=== PATIENT | female | born 1995 | race Caucasian/White ===

== ENCOUNTER 2020-05-30 06:51 | Outpatient (NON) | payer OTHER, SELFPAY ==
[2020-06-02 13:48] LABS: SARS-CoV-2 RNA PCR Negative
== END 2020-05-30 06:52 ==
LOC: ANHCOVIDDT 06:59
PROVIDERS: Visit Provider Physician Assistant
DX: Z20.828 Contact with and (suspected) exposure to other viral communicable diseases (principal)
CPT/HCPCS: 87635; C9803; U0003

== ENCOUNTER 2021-03-16 19:02 | Observation (INO) | payer BC, SELFPAY ==
--- NOTE | ~2021-03-16 | US_ITS ---
EXAMINATION: US pelvic complete DATE: 03/16/2021 22:39 INDICATION: Suprapubic pain. TECHNIQUE: Multiple transabdominal and transvaginal sonographic images of the pelvis were obtained. COMPARISON: CT abdomen and pelvis 03/30/2015 FINDINGS: TRANSABDOMINAL ULTRASOUND: The uterus measures 7.6 x 3.2 x 4.0 cm. There is no free fluid in the pelvis. TRANSVAGINAL ULTRASOUND: The endometrial complex measures 8 mm in thickness. The right ovary measures 3.1 x 1.9 x 1.7 cm. The left ovary measures 2.9 x 2.0 x 1.7 cm. There is normal vascular flow in the ovaries. IMPRESSION: 1. Normal pelvis. Reviewed, dictated and finalized at location A. IMPRESSION: 1. Normal pelvis.
[2021-03-16 19:35] VITALS: BP 123/66; PULSE 113; RESP 18; TEMP 38; O2SAT 99
[2021-03-16] MEDS: ACETAMINOPHEN 500 MG TABLET 1000 MG PO (21:40)
[2021-03-16 21:45] LABS: Add Urine Microscopic? YES; Amorphous Sediment Urine Few; Appearance Urine Clear (Clear); Bacteria Urine Trace /hpf; Bilirubin Urine Negative (Negative); Blood Urine 1+ (Negative); Color Urine Yellow (Yellow); Glucose Urine UA Negative (Negative); Ketones Urine Negative (Negative); Leukocyte Esterase Ur 3+ LEU/UL (Negative); Mucus Urine Rare /lpf; Nitrate Urine Negative (Negative); Protein Urine Negative (Negative); Specific Grav Ur 1.014 (1.001-1.035); Squamous Epithelial Cell Urine Rare /hpf (Few); Urobilinogen Urine Negative mg/dL (<2.0); WBC Urine >75 /hpf
[2021-03-16 22:25] LABS: Basophils Absolute Auto 0.2 K/mm3 (0.0-0.1); Eosinophils Absolute Auto 0.3 K/mm3 (0-0.3); Eosinophils Percent Auto 1.6 % (0-4.4); Hematocrit 41.8 % (37.0-47.0); Hemoglobin 13.5 g/dL (12.0-15.0); Immature Granulocyte Percent A 0.5 % (0-0.5); Lymphocytes Absolute Auto 5.27 K/mm3 (0.9-3.2); Lymphocytes Percent Auto 25.8 % (18.3-44.2); Mean Corpuscular HGB Conc 32.3 g/dl (32-36); Mean Corpuscular Hemoglobin 30.4 pg (26-34); Mean Corpuscular Volume 94.1 fl (80-100); Mean Platelet Volume 8.8 fl (7.4-10.4); Monocytes Absolute Auto 3.6 K/mm3 (0.1-0.6); Monocytes Percent Auto 17.7 % (2.6-8.5); Neutrophils Absolute Auto 10.9 K/mm3 (1.3-6.7); Neutrophils Percent Auto 53.4 % (45.5-73.1); Platelet Count Result 393 k/mm3 (150-375); Red Blood Count 4.44 M/mm3 (4.2-5.4); Red Cell Distribution Width 14.1 % (11.5-14.5); White Blood Count 20.5 K/mm3 (4.5-10.0)
[2021-03-16 22:33] LABS: Atypical Lymphocytes Present; Platelet Estimate Increased (Adequate)
[2021-03-16 22:37] LABS: Anion Gap 8 mmol/L (8-16); Blood Urea Nitrogen 12 mg/dL (7-17); Calcium 8.8 mg/dL (8.4-10.2); Carbon Dioxide 25 mmol/L (22-30); Chloride 104 mmol/L (98-107); Estimated CRCL calculation 110 ml/min; Estimated Glomerular Filt Rate > 60; Glucose 91 mg/dL (65-110); Potassium 3.9 mmol/L (3.4-5.0); Sodium 137 mmol/L (137-145)
[2021-03-16] MEDS: MORPHINE SULFATE (*CRX) 4 MG/ML INJ IV PUSH (22:38)
--- NOTE | 2021-03-16 23:30 | ED.FEMALEGU ---
HPI - Female Genitourinary General Chief complaint: Urogenital-Female Stated complaint: vaginal issues Time Seen by Provider: 03/16/21 20:55 History of Present Illness HPI Narrative: Patient is a 25-year-old female who presents ER with vaginal discharge and rash to the vagina. Patient reports 1 week ago she had sexual intercourse with her boyfriend who has been out of town for last 2 months. 2 days later she started developing some abnormal discharge. She then developed blisters to the outer aspect of her vagina. She has had these blisters before and began taking some valacyclovir her last day with no relief. She has urinary frequency and burning urination. She is febrile as well. No chills. She reports modest lower abdominal pain without radiation. Cannot describe aggravating or alleviating factors. Patient reports yesterday she was seen at a [facility] clinic and prescribed azithromycin and swabbed negative for Covid after having sinus congestion. Related Data Allergies Allergy/AdvReac Type Severity Reaction Status Date / Time amoxicillin Allergy Unknown erythema Verified 12/16/20 14:49 multiforme cephalexin Allergy Unknown allergic Verified 12/16/20 14:49 clavulanic acid Allergy Unknown Swelling Verified 12/16/20 14:49 Review of Systems Review of Systems: All systems reviewed & are unremarkable except as noted in HPI and below Constitutional: Constitutional: Denies chills Comments: + Fevers ENT: Reports nasal congestion and Denies sore throat Respiratory: Respiratory: Reports cough and Denies dyspnea Gastrointestinal: Gastrointestinal: Reports abdominal pain, Denies diarrhea, Denies nausea and Denies vomiting Genitourinary: Genitourinary: Reports nocturia, Reports dysuria, Reports pelvic pain, Denies flank pain and Reports vaginal discharge PMFSH Past Medical History Medical History Infectious mononucleosis without complication Overweight (BMI 25.0-29.9) Vaginal pain Surgical History Surgical History H/O splenectomy fam hx hemolytic anemia Social History Social History Alcohol intake: current Exam Narrative: GENERAL: Well-appearing, well-nourished, and in no acute distress. HEAD: Normocephalic, atraumatic. EYES: PERRL and EOMI. CHEST: Clear to auscultation. No respiratory distress. HEART: Tachycardic and regular. Normal peripheral pulses. ABDOMEN: Soft, mild pelvic tenderness without guarding, nondistended. : External genitalia with ulcerations consistent with herpes outbreak. No vesicles noted. No weeping or pustules. Right side more involved than the left. Patient with significant discomfort on speculum exam no CMT. Difficult to visualize cervix due to large amount of yellow purulent discharge. EXTREMITIES: Normal range of motion. No edema. SKIN: Warm, dry, no rash. NEURO: Alert and oriented x3. PSYCH: Normal mood and affect. Course Course Emergency Course: Discussed case with Dr. Multani who is on-call for patients who do not have a staff auditor. Patient will be admitted to the hospital for parenteral therapy of PID. Patient aware of diagnosis and treatment plan. Vital Signs Vital signs: Vital Signs Temperature 100.4 F H 03/16/21 19:35 Pulse Rate 113 H 03/16/21 19:35 Respiratory Rate 18 03/16/21 19:35 Blood Pressure 123/66 03/16/21 19:35 Pulse Oximetry 99 03/16/21 19:35 Temperature 100.4 F H 03/16/21 19:35 Pulse Rate 113 H 03/16/21 19:35 Respiratory Rate 18 03/16/21 19:35 Blood Pressure 123/66 03/16/21 19:35 Pulse Oximetry 99 03/16/21 19:35 MDM - Female Genitourinary Lab Data Result diagrams: 03/16/21 22:17 03/16/21 22:17 Labs: Lab Results 03/16/21 03/16/21 03/16/21 Range/Units 21:27 22:17 22:17 WBC 20.5 H (4.5-10.0) K/mm3 RBC
[2021-03-17] VITALS (7 sets, daily range): BP systolic 101–120; BP diastolic 45–71; PULSE 64–97; RESP 15–169; TEMP 35.7–36.5; O2SAT 97–100; BMI 26.5
[2021-03-17] MEDS: SODIUM CHLORIDE 0.9% IV 1,000 ML 125 ML IV CONT ×3 (00:07→18:12)
[2021-03-17] MEDS: CLINDAMYCIN 900 MG/D5W 50 ML 900 MG/50 ML PIGGYBACK 50 MG IVPB ×4 (00:07→21:08)
[2021-03-17] MEDS: GENTAMICIN SULFATE INJ 305 MG in DEXTROSE 5% 100 ML 107 MG IVPB (00:50)
--- NOTE | 2021-03-17 00:53 | ADMGEN ---
This patient, Deepti Leyva, was admitted to 2 Medical Room 257-01. Patient/family oriented to hospital policies and general routines including ID bracelet, bed and alarms, visiting hours, pain management, procedures, bathroom and other care routines, personal items, smoking policy, room service/diet, and visiting hours. Information on how to activate the Rapid Response Team has been discussed. Patient/Family are encouraged to report perceived risks to care and to ask questions if they do not understand what they are told or what they should do.
[2021-03-17] MEDS: MORPHINE SULFATE (*CRX) 4 MG/ML INJ IV PUSH ×4 (01:20→21:03)
[2021-03-17 05:42] LABS: Basophils Absolute Auto 0.2 K/mm3 (0.0-0.1); Basophils Percent Auto 1.5 % (0.2-1.2); Eosinophils Absolute Auto 0.6 K/mm3 (0-0.3); Hematocrit 40.2 % (37.0-47.0); Hemoglobin 12.8 g/dL (12.0-15.0); Immature Granulocyte Absolute 0.05 K/mm3 (0.00-0.031); Immature Granulocyte Percent A 0.4 % (0-0.5); Lymphocytes Absolute Auto 3.94 K/mm3 (0.9-3.2); Lymphocytes Percent Auto 28.7 % (18.3-44.2); Mean Corpuscular HGB Conc 31.8 g/dl (32-36); Mean Corpuscular Hemoglobin 30.8 pg (26-34); Mean Corpuscular Volume 96.9 fl (80-100); Mean Platelet Volume 8.8 fl (7.4-10.4); Monocytes Absolute Auto 2.4 K/mm3 (0.1-0.6); Monocytes Percent Auto 17.8 % (2.6-8.5); Neutrophils Absolute Auto 6.6 K/mm3 (1.3-6.7); Neutrophils Percent Auto 47.6 % (45.5-73.1); Platelet Count Result 374 k/mm3 (150-375); Red Blood Count 4.15 M/mm3 (4.2-5.4); Red Cell Distribution Width 14.3 % (11.5-14.5); White Blood Count 13.7 K/mm3 (4.5-10.0)
[2021-03-17] MEDS: valACYclovir HCL 500 MG TABLET PO ×2 (08:37→21:08)
[2021-03-17] MEDS: HYDROcodone/acetaminophen (*CRX) 5-325 MG TABLET 1 TAB PO (12:28)
[2021-03-17 14:49] LABS: Gentamicin Random < 0.6 ug/mL (5.0-12.0)
--- NOTE | 2021-03-17 15:33 | PM.IMHP ---
H&P: HPI History of Present Illness Date/Time: 03/17/21 15:33 25 y/o nulligravida who presented to the ED with vaginal pain. Her sexual partner had been out of town for two months, then returned. She reports rough sex on 03/11, after which she noted bleeding and pain at the introitus. Exam by ED physician was very uncomfortable, with lots of purulent drainage from the cervix. Her WBC was 20K and she was febrile, so she was admitted for parenteral PID therapy. Also reports painful vulvar bumps / blisters. She has seen Dr. Julius Lane for this in the past and has had negative swabs and negative blood testing for HSV. She does not get fever blisters. She reports no abdominal pain, only vulvar pain. Urination is excruciating. Has required morphine here for pain control. Chief Complaint: Vaginal issues. Review of Systems Review of Systems: All systems reviewed & are unremarkable except as noted in HPI and below PMFSH Past Medical History Medical History Depression Infectious mononucleosis without complication Overweight (BMI 25.0-29.9) Vaginal pain Surgical History Surgical History H/O splenectomy fam hx hemolytic anemia Social History Social History Smoking status: Never smoker Alcohol intake: current Drinks per week: 1 Substance use: current Substance use type: marijuana Other substance usage details: 03/16/2021 Spiritual care concerns: No Meds Home Medications and Allergies Home Medications Medication Instructions Recorded Confirmed Type dextroamphetamine-amphetamine 10 mg PO BID 03/17/21 03/17/21 History duloxetine 60 mg PO DAILY 03/17/21 03/17/21 History Allergies Allergy/AdvReac Type Severity Reaction Status Date / Time amoxicillin Allergy Unknown erythema Verified 12/16/20 14:49 multiforme cephalexin Allergy Unknown allergic Verified 12/16/20 14:49 clavulanic acid Allergy Unknown Swelling Verified 12/16/20 14:49 Vital Signs Vital Signs - 24 hr 03/16/21 19:35 03/17/21 00:14 03/17/21 00:45 Temperature 38.0 C H 36.5 C Pulse Rate 113 H 97 90 Respiratory Rate 18 15 17 Blood Pressure 123/66 120/71 119/66 Pulse Oximetry 99 97 99 03/17/21 06:00 03/17/21 12:29 03/17/21 14:00 Temperature 36.1 C L 35.7 C L Pulse Rate 78 64 Respiratory Rate 17 16 Blood Pressure 106/52 L 110/60 101/45 L Pulse Oximetry 98 100 Exam Const: Orientation/consciousness: patient oriented x3 Other: Well-developed, well-nourished female in no acute distress. Neck: Thyroid: thyroid normal Lymphatic: no lymphadenopathy noted (in neck, axilla or inguinal nodes) Resp: Effort & Inspection: normal respiratory effort Auscultation: clear to auscultation bilaterally Cardio: Rate: regular rate Rhythm: regular rhythm Heart sounds: S1 normal heart sound present and S2 normal heart sound present GI: Other: ABD: Soft, nontender, nondistended. No guarding or rebound tenderness. No hepatosplenomegaly. : General: Yes no CVA tenderness Other: Limited exam performed in the hospital bed. EXT GEN: a few well-healed ulcerations / excoriations on the right labium minus. Also a shallow laceration at the vaginal introitus extending to the perineum seems to be the source of her pain. Ulcerations and laceration were swabbed for HSV. Speculum and bimanual exams were not undertaken due to her high degree of pain. Back/Spine/Pelvis: Back: no CVA tenderness Skin: General skin exam: normal color and no rashes or lesions noted Neuro: General: patient oriented x3 Extrem: Other: Extremities: nontender with no edema Psych: Mental Status: mental status grossly normal Affect: normal affect H&P: Results Labs Labs: Short CBC 03/16/21 03/17/21 Range/Units 22:17 05:30 WBC 20.5 H 13.7 H (4.5-10.0) K/mm3 Hgb 13.5 12.8
[2021-03-17] MEDS: LIDOCAINE HCL 2% JELLY 5 ML TUBE 1 APPLIC MUCOUS MEM (16:36)
[2021-03-18] MEDS: GENTAMICIN SULFATE INJ 305 MG in DEXTROSE 5% 100 ML 100 MG IVPB (00:20)
[2021-03-18] MEDS: SODIUM CHLORIDE 0.9% IV 1,000 ML 125 ML IV CONT (03:00)
[2021-03-18 05:24] VITALS: BP 98/46; PULSE 76; RESP 20; TEMP 36.1; O2SAT 99
[2021-03-18 05:25] VITALS: BP 104/46
[2021-03-18] MEDS: CLINDAMYCIN 900 MG/D5W 50 ML 900 MG/50 ML PIGGYBACK 50 MG IVPB (05:47)
[2021-03-18 06:07] LABS: Estimated CRCL calculation 125 ml/min; Estimated Glomerular Filt Rate > 60
[2021-03-18] MEDS: MORPHINE SULFATE (*CRX) 4 MG/ML INJ IV PUSH (09:04)
[2021-03-18] MEDS: valACYclovir HCL 500 MG TABLET PO (09:04)
[2021-03-18 09:12] LABS: Hematocrit 40.9 % (37.0-47.0); Hemoglobin 12.9 g/dL (12.0-15.0); Mean Corpuscular HGB Conc 31.5 g/dl (32-36); Mean Corpuscular Hemoglobin 30.8 pg (26-34); Mean Corpuscular Volume 97.6 fl (80-100); Mean Platelet Volume 9.3 fl (7.4-10.4); Platelet Count Result 438 k/mm3 (150-375); Red Blood Count 4.19 M/mm3 (4.2-5.4); Red Cell Distribution Width 14.3 % (11.5-14.5); White Blood Count 8.3 K/mm3 (4.5-10.0)
--- NOTE | 2021-03-18 12:42 | PM.GYNPNOP ---
BREWMASTER - A/P Assessment and plan (1) Laceration of perineum in female: Code(s): S31.41XA - Laceration without foreign body of vagina and vulva, initial encounter Status: Acute Assessment and Plan: A/P: 1) PID, clinically improving. Home to f/u 14 days total antibiotic course. Home with Flagyl and doxycycline. F/u with me in 2 weeks in the office. Still waiting for results regarding CT/GC and HSV. 2) Perineal laceration. Advised sitzbaths tid, continue xylocaine 2% jelly. F/u 2 weeks in office. (2) Acute PID (pelvic inflammatory disease): Code(s): N73.0 - Acute parametritis and pelvic cellulitis Status: Acute Time Spent With Patient Time with patient: less than 15 minutes BREWMASTER- PN:Subj Post-Op Subjective Date/time seen: 03/18/21 12:42 Feels much better today. No fever. Xylocaine jelly is great for the perineal pain. Tolerating diet. Interval history: Pain OK. Tolerating diet. Voiding. Would like to go home. Review of Systems Review of Systems: All systems reviewed & are unremarkable except as noted in HPI and below Exam Narrative: AVSS I/O OK ABD soft, nontender. EXT nontender Pelvic: Deferred. BREWMASTER - PN: Obj Data Vital Signs Vital Signs: Vital Signs - 24 hr 03/17/21 14:00 03/17/21 15:40 03/17/21 21:16 Temperature 35.7 C L 36.4 C Pulse Rate 64 72 71 Respiratory Rate 16 169 H Blood Pressure 101/45 L 111/66 108/60 Pulse Oximetry 100 98 03/18/21 05:24 03/18/21 05:25 Temperature 36.1 C L Pulse Rate 76 Respiratory Rate 20 Blood Pressure 98/46 L 104/46 L Pulse Oximetry 99 Intake/Output Intake/Output: Intake & Output 03/15/21 03/16/21 03/17/21 03/18/21 23:59 23:59 23:59 23:59 Intake Total 3475 1545 Output Total 1000 900 Balance 6759 535 Meds/Results Medications: Active Medications Generic Name Dose Route Start Last Admin Trade Name Freq PRN Reason Stop Dose Admin Acetaminophen 650 mg 03/16/21 23:43 Acetaminophen 325 Mg Tablet PO Q4H PRN Mild Pain (1-3) or Fever Hydrocodone Bitart/Acetaminophen 1 tab 03/16/21 23:43 03/17/21 12:28 Hydrocodone/Acetaminophen (*Crx) 5-325 Mg Tablet PO 1 tab Q4H PRN Administration Pain Rated 4-6 Sodium Chloride 1,000 mls @ 125 mls/hr 03/16/21 23:45 03/18/21 03:00 Normal Saline Iv IV CONT 125 mls/hr .Q8H NIGHAT Administration Clindamycin Phosphate 900 mg in 50 mls @ 50 mls/hr 03/17/21 07:00 03/18/21 07:08 Cleocin 900 Mg/D5w 50 Ml IVPB Infused Q8HR NIGHAT Infusion Gentamicin Sulfate 305 mg/ 107.625 mls @ 100 mls/hr 03/18/21 01:00 03/18/21 01:25 Dextrose IVPB Infused Q24H NIGHAT Infusion Lidocaine HCl 1 applic 03/17/21 15:32 03/17/21 16:36 Lidocaine Hcl 2% Jelly 5 Ml Tube MUCOUS MEM 1 applic ONCE PRN Administration Pain Morphine Sulfate 4 mg 03/16/21 23:43 03/18/21 09:04 Morphine Sulfate (*Crx) 4 Mg/Ml Inj IV PUSH 4 mg Q2H PRN Administration Pain Rated 7-10 Ondansetron HCl 4 mg 03/16/21 23:43 Ondansetron Inj 4 Mg/2 Ml Vial IV PUSH Q4H PRN Nausea Valacyclovir HCl 500 mg 03/17/21 09:00 03/18/21 09:04 Valacyclovir Hcl 500 Mg Tablet PO 500 mg Q12HR NIGHAT Administration Radiology Results: ITS Impressions Pelvis Ultrasound 03/16/21 22:46 IMPRESSION: 1. Normal pelvis. Labs CBC & Chem 7: 03/18/21 05:22 03/18/21 05:24 Labs: Laboratory Results - last 24 hr 03/17/21 03/18/21 03/18/21 12:11 05:22 05:24 WBC 8.3 RBC 4.19 L Hgb 12.9 Hct 40.9 MCV 97.6 MCH 30.8 MCHC 31.5 L RDW 14.3 Plt Count 438 H MPV 9.3 Creatinine 0.50 L Estim Creat Clear Calc 125 Estimated GFR > 60 Random Gentamicin < 0.6 L
== END 2021-03-18 14:16 | disposition home or self-care (01) ==
LOC: ANHED 23:51 → ANH2MED 03-17 00:12
PROVIDERS: Admitting Provider Obstetrics & Gynecology; Emergency Provider Emergency Medicine; PCP Family Medicine; Visit Provider Obstetrics & Gynecology
DX: S31.41XA Laceration without foreign body of vagina and vulva, initial encounter (principal); N73.0 Acute parametritis and pelvic cellulitis; X58.XXXA Exposure to other specified factors, initial encounter; F32.9 Major depressive disorder, single episode, unspecified
CPT/HCPCS: 36415; 76856; 80048; 80170; 81001; 82565; 85025; 85027; 87070; 87086; 87255; 87491; 87591; 87808; 96361; 96365; 96366; 96367; 96375; 96376; 99285; A9270; G0378; J1580; J2270; J7030

== ENCOUNTER 2021-03-22 20:45 | Observation (INO) | payer BC, SELFPAY ==
[2021-03-22] VITALS (10 sets, daily range): BP systolic 109–124; BP diastolic 59–99; PULSE 87–117; RESP 14–29; TEMP 37.1–39.4; O2SAT 98–100
--- NOTE | ~2021-03-22 | XR_ITS ---
EXAMINATION: XR chest 1V portable DATE: 03/22/2021 21:51 INDICATION: Fever and chills. TECHNIQUE: A single frontal view of the chest was obtained. COMPARISON: Chest 2 views 06/09/2006, CT abdomen and pelvis 03/22/2021 FINDINGS: The chest demonstrates clear lungs without pneumonia, pleural effusion, or pneumothorax. Th e heart size is normal. IMPRESSION: 1. No acute cardiopulmonary disease. Reviewed, dictated and finalized at location A.
--- NOTE | ~2021-03-22 | CT_ITS ---
EXAMINATION: CT abdomen pelvis w con DATE: 03/23/2021 00:05 INDICATION: Right lower quadrant abdominal pain. Nausea. TECHNIQUE: Computed tomography (CT) of the abdomen and pelvis was performed with 100 mL Omnipaque 350 intravenous contrast. Automated exposure control and iterative reconstruction technique were employe d. The dose-length product was 264.01 mGy-cm. COMPARISON: CT abdomen and pelvis 03/30/2015 FINDINGS: The visualized portions of the lung bases demonstrate mild atelectasis. No pleural effusion . The heart size is normal. No pericardial effusion. The liver, gallbladder, pancreas, adrenal glands , and kidneys are normal. There is a small spleen with peripheral calcifications, likely from old tra nica. There is a large volume of stool in the colon. The appendix is normal. There is mild ileocolic l ymphadenopathy. There is no free intraperitoneal fluid. The bones are unremarkable. IMPRESSION: 1. Mild ileocolic lymphadenopathy, likely reactive. Reviewed, dictated and finalized at location A.
--- NOTE | 2021-03-22 21:43 | ED.FEVER ---
HPI - Fever General Chief Complaint: Fever Stated Complaint: fever/ previously seen for a viral infection Time Seen by Provider: 03/22/21 21:06 Source: patient and RN notes reviewed Mode of arrival: ambulatory Limitations: no limitations History of Present Illness HPI Narrative: This is 25 year old female with history of splenectomy who presents for evaluation of a fever. She was admitted on 03/16/21 for evaluation of low grade fever with possible PID. She was discharge on after fever and elevated wbc resolved. She states she was told she had viral infection. She developed a fever again last night. She also reports sore throat and body aches. She denies cough, chest pain, shortness of breath, abdominal pain , nausea, vomiting or diarrhea . She also denies urinary complaints. She denies vaginal discharge. She reports her vaginal lesions are not as painful as last ED visit. Related Data Home Medications Medication Instructions Recorded Confirmed dextroamphetamine-amphetamine 10 mg PO BID 03/17/21 03/17/21 duloxetine 60 mg PO DAILY 03/17/21 03/17/21 Allergies Allergy/AdvReac Type Severity Reaction Status Date / Time amoxicillin Allergy Unknown erythema Verified 03/22/21 21:12 multiforme cephalexin Allergy Unknown allergic Verified 03/22/21 21:12 clavulanic acid Allergy Unknown Swelling Verified 03/22/21 21:12 Review of Systems Review of Systems: All systems reviewed & are unremarkable except as noted in HPI and below PMFSH Past Medical History Medical History Depression Infectious mononucleosis without complication Overweight (BMI 25.0-29.9) Vaginal pain Surgical History Surgical History H/O splenectomy fam hx hemolytic anemia Social History Social History Smoking status: Never smoker Alcohol intake: current Drinks per week: 1 Substance use: current Substance use type: marijuana Other substance usage details: 03/16/2021 Spiritual care concerns: No Exam Const: General: no acute distress and alert Orientation/consciousness: patient oriented x3 HENMT: Mouth: Yes Normal oral and palatal mucosa present, Yes lip normal and Yes moist mucous membranes Throat: posterior oropharynx normal and uvula midline Eyes: EOM: EOMs intact bilaterally Chest: Chest palpation & inspection: normal inspection of the chest Resp: Effort & Inspection: normal respiratory effort, no retractions and no use of accessory muscles Auscultation: clear to auscultation bilaterally Cardio: Rate: tachycardic Rhythm: regular rhythm Heart sounds: no murmurs GI: GI Palp: Yes Soft to palpation, Yes Tenderness to palpation present (GI) (RLQ), No Guarding due to palpation present (GI) and No Rigid due to palpation Auscultation: normal bowel sounds : Other: 2 clusters of vesicular lesion to left labial majora, no drainage, no significant swelling or inflammation Skin: General skin exam: normal color Rashes: no rashes Neuro: General: patient oriented x3, moves all extremities and CN's II-XI intact bilaterally Psych: Mental Status: mental status grossly normal Affect: normal affect Course Consultations Consultation #1: I Discussed case with Dr. Rae. She agrees for patient to be admitted for concern of bacteremia. She recommends vancomycin and Aztreonam given patient's allergy to pencillin and keflex. No need for FLAGMAN consult yet. Date: 03/23/21 Time: 01:30 Vital Signs Vital signs: Vital Signs Temperature 103.0 F H 03/22/21 20:59 Pulse Rate 117 H 03/22/21 20:59 Respiratory Rate 14 03/22/21 20:59 Blood Pressure 124/99 H 03/22/21 20:59 Pulse Oximetry 100 03/22/21 20:59 Temperature 98.7 F 03/22/21 22:47 Pulse Rate 88 03/23/21 01:01 Respiratory Rate 22 H 03/23/21 01:01 Blood Pressure 112/61
[2021-03-22] MEDS: IBUPROFEN 600 MG TABLET PO (21:56)
[2021-03-22] MEDS: SODIUM CHLORIDE 0.9% IV 1,000 ML 999 ML IV CONT (22:21)
[2021-03-22 22:50] LABS: Add Urine Microscopic? YES; Appearance Urine Clear (Clear); Bilirubin Urine Negative (Negative); Blood Urine Negative (Negative); Color Urine Yellow (Yellow); Glucose Urine UA Negative (Negative); Ketones Urine Negative (Negative); Leukocyte Esterase Ur 1+ LEU/UL (Negative); Mucus Urine Rare /lpf; Nitrate Urine Negative (Negative); Protein Urine Negative (Negative); Specific Grav Ur 1.024 (1.001-1.035); Squamous Epithelial Cell Urine Many /hpf (Few); Urobilinogen Urine Negative mg/dL (<2.0); WBC Urine 16-20 /hpf
[2021-03-22 22:54] LABS: Basophils Absolute Auto 0.2 K/mm3 (0.0-0.1); Basophils Percent Auto 1.2 % (0.2-1.2); Eosinophils Absolute Auto 0.1 K/mm3 (0-0.3); Eosinophils Percent Auto 0.8 % (0-4.4); Hematocrit 36.4 % (37.0-47.0); Hemoglobin 11.8 g/dL (12.0-15.0); Immature Granulocyte Absolute 0.09 K/mm3 (0.00-0.031); Immature Granulocyte Percent A 0.5 % (0-0.5); Lymphocytes Absolute Auto 3.89 K/mm3 (0.9-3.2); Mean Corpuscular HGB Conc 32.4 g/dl (32-36); Mean Corpuscular Hemoglobin 30.6 pg (26-34); Mean Corpuscular Volume 94.3 fl (80-100); Mean Platelet Volume 8.7 fl (7.4-10.4); Monocytes Absolute Auto 3.2 K/mm3 (0.1-0.6); Neutrophils Absolute Auto 9.4 K/mm3 (1.3-6.7); Neutrophils Percent Auto 55.5 % (45.5-73.1); Platelet Count Result 402 k/mm3 (150-375); Red Blood Count 3.86 M/mm3 (4.2-5.4); Red Cell Distribution Width 13.7 % (11.5-14.5); White Blood Count 16.9 K/mm3 (4.5-10.0)
[2021-03-22 23:12] LABS: Alanine Aminotransferase 27 U/L (4-35); Albumin Level 3.4 g/dL (3.5-5.1); Alkaline Phosphatase 68 U/L (38-126); Anion Gap 7 mmol/L (8-16); Aspartate Amino Transferase 29 U/L (14-36); Bilirubin,Total 0.2 mg/dL (0.2-1.3); Blood Urea Nitrogen 12 mg/dL (7-17); Calcium 8.1 mg/dL (8.4-10.2); Carbon Dioxide 21 mmol/L (22-30); Chloride 106 mmol/L (98-107); Estimated CRCL calculation 94 ml/min; Estimated Glomerular Filt Rate > 60; Glucose 96 mg/dL (65-110); Potassium 3.4 mmol/L (3.4-5.0); Sodium 134 mmol/L (137-145)
[2021-03-22 23:20] LABS: Monoscreen Negative (Negative); Negative Monotest Control Negative (Negative); Positive Monotest Control Positive (Positive)
[2021-03-22 23:21] LABS: CRP 5.1 mg/dL (<1.0)
[2021-03-22 23:23] LABS: EDCOVIDSCREEN Negative (Negative)
[2021-03-23] VITALS (9 sets, daily range): BP systolic 102–114; BP diastolic 55–70; PULSE 69–99; RESP 16–22; TEMP 36–37.4; O2SAT 97–100; BMI 25.5
[2021-03-23] MEDS: ONDANSETRON INJ 4 MG/2 ML VIAL IV PUSH (00:44)
[2021-03-23] MEDS: AZTREONAM 1 GM in DEXTROSE 5% IN WATER 50 ML 100 ML IVPB ×2 (02:17→09:43)
[2021-03-23] MEDS: SODIUM CHLORIDE 0.9% IV 1,000 ML 125 ML IV CONT ×3 (02:54→19:50)
--- NOTE | 2021-03-23 03:38 | PM.IMHP ---
H&P: HPI History of Present Illness Date/Time: 03/23/21 03:38 Chief Complaint: Fever Narrative: This is a 25-year-old female who was recently diagnosed with PID was treated and discharged home however she comes back today after she had a fever, she denies any nausea, vomiting, any vaginal discharge any chills or rigors, no cough, no sputum production, no shortness of breath no generalized malaise, has had good appetite. Patient has history of splenectomy. Preliminary workup has been essentially nonrevealing. She was discharged home on Flagyl and doxycycline. Decision has been made to place the patient in observation for further management assessment and treatment. A CT of abdomen and pelvis did not show any pelvic abscesses or tubal ovarian abscess. A urinalysis was significant for numerous wbc's present and a CBC was significant for a white count of 16,000. Chest x-ray with no acute abnormalities. Review of Systems Review of Systems: Fever Constitutional: Constitutional: Denies chills, Denies fatigue, Reports fever(s), Denies lethargy, Denies malaise and Denies weakness Eyes: Eyes: Denies change in vision ENT: Denies dysphagia, Denies nasal congestion, Denies nasal discharge and Denies nasal obstruction Cardiovascular: Cardiovascular: Reports no additional cardiovascular complaints Respiratory: Respiratory: Reports no additional respiratory complaints Gastrointestinal: Gastrointestinal: Denies abdominal pain, Denies dyspepsia, Denies diarrhea and Denies nausea Genitourinary: Genitourinary: Reports no additional female genitourinary complaints, Denies dysuria, Denies pelvic pain, Denies flank pain and Denies vaginal discharge Musculoskeletal: Musculoskeletal: Reports no additional musculoskeletal complaints Integumentary/Breasts: Skin/Breast: Reports system reviewed and no additional complaints, except as docu Neurologic: Reports system reviewed and no additional complaints, except as documented Psychiatric: Psychiatric: Reports no additional psychiatric complaints Endocrine: Endocrine: Reports no additional endocrine complaints Hematologic/Lymphatic: Hematologic/Lymphatic: Reports no additional hematologic/lymphatic complaints Allergic/Immunologic: Allergic/Immunologic: Reports no additional allergic/immunologic complaints PMFSH Past Medical History Medical History Depression Infectious mononucleosis without complication Overweight (BMI 25.0-29.9) Vaginal pain Surgical History Surgical History H/O splenectomy fam hx hemolytic anemia Family History Family History (Updated 03/23/21 @ 03:16 by Yesica Lai, RN) Other Unknown family medical history Social History Social History Smoking status: Never smoker Second hand tobacco smoke exposure: No Alcohol intake: current Drinks per week: 2 Substance use: never Substance use type: marijuana Other substance usage details: 03/16/2021 Spiritual care concerns: No Meds Home Medications and Allergies Home Medications Medication Instructions Recorded Confirmed Type dextroamphetamine-amphetamine 10 mg PO BID 03/17/21 03/17/21 History duloxetine 60 mg PO DAILY 03/17/21 03/17/21 History doxycycline hyclate 100 mg PO BID #24 tablet 03/18/21 Rx lidocaine HCl 1 applic MUCOUS MEMBRANE [id number] PRN 03/18/21 Rx #30 ml metronidazole [Flagyl] 500 mg PO BID #24 tablet 03/18/21 Rx Allergies Allergy/AdvReac Type Severity Reaction Status Date / Time amoxicillin Allergy Unknown erythema Verified 03/22/21 21:12 multiforme cephalexin Allergy Unknown allergic Verified 03/22/21 21:12 clavulanic acid Allergy Unknown Swelling Verified 03/22/21 21:12 Vital Signs Vital Signs - 24 hr 03/22/21 20:59 03/22/21 21:07 03/22/21 21:31 Temperature 103.0 F H 102.2 F H Pulse
--- NOTE | 2021-03-23 03:55 | ADMGEN ---
This patient, Deepti Leyva, was admitted to [facility] Surg Room 317-02. Patient/family oriented to hospital policies and general routines including ID bracelet, bed and alarms, visiting hours, pain management, procedures, bathroom and other care routines, personal items, smoking policy, room service/diet, and visiting hours. Information on how to activate the Rapid Response Team has been discussed. Patient/Family are encouraged to report perceived risks to care and to ask questions if they do not understand what they are told or what they should do.
[2021-03-23] MEDS: ENOXAPARIN 40 MG/0.4 ML SYRINGE SUB-Q (08:28)
--- NOTE | 2021-03-23 15:33 | PM.IMPN ---
Progress Note: A&P Assessment and Plan (1) UTI (urinary tract infection): Code(s): N39.0 - Urinary tract infection, site not specified Status: Acute Assessment and Plan: broad-spectrum antibiotics Aztreonam Await cultures UA was positive for leukocyte esterase, wbc's 16-20 Urine culture pending Deescalate antibiotics with urine culture results (2) Recurrent fever of unknown cause: Code(s): R50.9 - Fever, unspecified Status: Acute Assessment and Plan: Patient with new urinary tract infection likely causing new fever WBCs 16.9 upon admission Trend labs Tylenol p.r.n. 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 She stated that she still has or body aches and fever. She he also states that her throat is hurting. She denies having a cough. She did state that she is having sweats fevers and chills occasionally and that she is having severe fatigue. She also states that her appetite has been compromise and she is unable to eat like normal. She denies chest pain, shortness of breath, nausea, vomiting. Labs show show an elevated white blood cell count. Patient was started on IV antibiotics Review of Systems Review of Systems: All systems reviewed & are unremarkable except as noted in HPI and below Exam Const: General: cooperative, comfortable, no acute distress, well developed, alert, awake, ill appearing and tired appearing Nutritional Appearance: average body habitus Orientation/consciousness: oriented to person, oriented to place, oriented to time and patient oriented x3 HENMT: Head: normal to inspection, normocephalic and atraumatic Ears: hearing grossly normal bilaterally Face and sinus: normal facial exam Eyes: General: appearance normal, both eyes and all related structures Pupils: Equal, round and reactive pupils present EOM: EOMs intact bilaterally Neck: Neck: full ROM, no lymphadenopathy and no JVD Thyroid: thyroid normal Lymphatic: no lymphadenopathy noted Resp: Effort & Inspection: normal respiratory effort and able to speak in complete sentences Auscultation: clear to auscultation bilaterally Cardio: Jugular venous distension: no JVD Rate: regular rate Rhythm: regular rhythm Heart sounds: S1 normal heart sound present and S2 normal heart sound present : General: Yes deferred Skin: Rashes: no rashes Wounds: no wounds Neuro: General: oriented to person, oriented to place, oriented to time, patient oriented x3, gait normal, tone normal, moves all extremities and CN's II-XI intact bilaterally Cranial nerves: Yes CN's II-XII intact bilaterally and Yes Equal, round and reactive pupils present Cognition (Neuro): normal cognition Speech: normal speech Gait exam (Neuro): Normal gait present Motor exam (neuro): 5/5 motor strength present throughout Extrem: General: normal to inspection, full ROM, no joint enlargement and no pedal edema Objective Data Vital Signs Vital Signs: Vital Signs - 24 hr 03/22/21 20:59 03/22/21 21:07 03/22/21 21:31 Temperature 39.4 C H 39.0 C H Pulse Rate 117 H 113 H 105 H Respiratory Rate 14 16 27 H Blood Pr
[2021-03-23] MEDS: AZTREONAM 1 GM in DEXTROSE 5% IN WATER 50 ML IVPB (17:31)
[2021-03-23] MEDS: ACETAMINOPHEN 500 MG TABLET 1000 MG PO (18:13)
[2021-03-24] MEDS: AZTREONAM 1 GM in DEXTROSE 5% IN WATER 50 ML 100 ML IVPB ×2 (02:24→09:23)
[2021-03-24] MEDS: SODIUM CHLORIDE 0.9% IV 1,000 ML 125 ML IV CONT (04:17)
[2021-03-24 06:00] VITALS: BP 110/52; PULSE 95; RESP 20; TEMP 36.7; O2SAT 99
[2021-03-24 06:46] LABS: Basophils Absolute Auto 0.2 K/mm3 (0.0-0.1); Basophils Percent Auto 1.3 % (0.2-1.2); Eosinophils Absolute Auto 0.5 K/mm3 (0-0.3); Eosinophils Percent Auto 3.6 % (0-4.4); Hematocrit 40.9 % (37.0-47.0); Hemoglobin 12.9 g/dL (12.0-15.0); Immature Granulocyte Absolute 0.06 K/mm3 (0.00-0.031); Immature Granulocyte Percent A 0.4 % (0-0.5); Lymphocytes Absolute Auto 3.27 K/mm3 (0.9-3.2); Lymphocytes Percent Auto 22.4 % (18.3-44.2); Mean Corpuscular HGB Conc 31.5 g/dl (32-36); Mean Corpuscular Volume 95.1 fl (80-100); Monocytes Percent Auto 13.7 % (2.6-8.5); Neutrophils Absolute Auto 8.6 K/mm3 (1.3-6.7); Neutrophils Percent Auto 58.6 % (45.5-73.1); Platelet Count Result 457 k/mm3 (150-375); Red Cell Distribution Width 13.9 % (11.5-14.5); White Blood Count 14.6 K/mm3 (4.5-10.0)
[2021-03-24 07:35] LABS: Alanine Aminotransferase 23 U/L (4-35); Albumin Level 3.4 g/dL (3.5-5.1); Alkaline Phosphatase 68 U/L (38-126); Anion Gap 8 mmol/L (8-16); Aspartate Amino Transferase 26 U/L (14-36); Bilirubin,Total 0.1 mg/dL (0.2-1.3); Blood Urea Nitrogen 6 mg/dL (7-17); Calcium 8.7 mg/dL (8.4-10.2); Carbon Dioxide 25 mmol/L (22-30); Chloride 104 mmol/L (98-107); Estimated CRCL calculation 110 ml/min; Estimated Glomerular Filt Rate > 60; Glucose 86 mg/dL (65-110); Magnesium 1.8 mg/dL (1.6-2.3); Potassium 3.9 mmol/L (3.4-5.0); Sodium 137 mmol/L (137-145)
[2021-03-24] MEDS: ACETAMINOPHEN 500 MG TABLET 1000 MG PO (09:22)
[2021-03-24] MEDS: ENOXAPARIN 40 MG/0.4 ML SYRINGE SUB-Q (09:23)
[2021-03-24 14:00] VITALS: BP 111/54; PULSE 93; RESP 20; TEMP 36.4; O2SAT 97
--- NOTE | 2021-03-24 15:22 | PM.DS ---
DS: Admitting Diagnosis Discharge Date date of service 03/24/2021 at 1445 Admitting Diagnosis UTI DS: Discharge Diagnosis Discharge Diagnosis (1) UTI (urinary tract infection): Code(s): N39.0 - Urinary tract infection, site not specified Status: Acute Assessment and Plan: broad-spectrum antibiotics Aztreonam Await cultures UA was positive for leukocyte esterase, wbc's 16-20 Urine culture pending Deescalate antibiotics with urine culture results (2) Recurrent fever of unknown cause: Code(s): R50.9 - Fever, unspecified Status: Acute Assessment and Plan: Patient with new urinary tract infection likely causing new fever WBCs 16.9 upon admission Trend labs Tylenol p.r.n. 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 It was noted upon admission the patient had a high white count of 16. Patient also was found to have a UTI that grew group B Staphylococcus. Patient was treated with IV antibiotics while inpatient and is being discharged on oral antibiotics. Although labs remained stable. Patient stated that she is doing better today and that she is ready to go home. Education was given about the patient taking it easy for couple days. Patient denies chest pain, shortness of breath, weakness, fatigue, nausea, vomiting, diarrhea, constipation or any other symptomatology. Status at Discharge Functional status at discharge: independent ambulation Overall status at discharge: patient is back to baseline Time Spent with Patient Time attestation: Total time spent providing and/or coordinating discharge services: 27 minutes Time spent: Less than 30 minutes Exam Const: General: cooperative, comfortable, no acute distress, well developed, alert, awake, ill appearing and tired appearing Nutritional Appearance: average body habitus Orientation/consciousness: oriented to person, oriented to place, oriented to time and patient oriented x3 HENMT: Head: normal to inspection, normocephalic and atraumatic Ears: hearing grossly normal bilaterally Face and sinus: normal facial exam Eyes: General: appearance normal, both eyes and all related structures Pupils: Equal, round and reactive pupils present EOM: EOMs intact bilaterally Neck: Neck: full ROM, no lymphadenopathy and no JVD Thyroid: thyroid normal Lymphatic: no lymphadenopathy noted Resp: Effort & Inspection: normal respiratory effort and able to speak in complete sentences Auscultation: clear to auscultation bilaterally Cardio: Jugular venous distension: no JVD Rate: regular rate Rhythm: regular rhythm Heart sounds: S1 normal heart sound present and S2 normal heart sound present : General: Yes deferred Skin: Rashes: no rashes Wounds: no wounds Neuro: General: oriented to person, oriented to place, oriented to time, patient oriented x3, gait normal, tone normal, moves all extremities and CN's II-XI intact bilaterally Cranial nerves: Yes CN's II-XII intact bilaterally and Yes Equal, round and reactive pupils present Cognition (Neuro): normal cognition Speech: normal speech Gait exam (Neuro): Normal gait present Motor exam (neuro): 55 motor
== END 2021-03-24 16:35 | disposition home or self-care (01) ==
LOC: ANHED 03-23 01:33 → ANH3MEDSUR 03-23 09:43
PROVIDERS: Admitting Provider Internal Medicine; Emergency Provider General Practice; PCP Family Medicine; Visit Provider Internal Medicine
DX: N39.0 Urinary tract infection, site not specified (principal); N73.0 Acute parametritis and pelvic cellulitis; A60.09 Herpesviral infection of other urogenital tract; R50.9 Fever, unspecified; Z90.81 Acquired absence of spleen
CPT/HCPCS: 36415; 71045; 74177; 80053; 81001; 81025; 83605; 83735; 85025; 86140; 86308; 87040; 87077; 87081; 87086; 87088; 87426; 87804; 87880; 96361; 96365; 96366; 96367; 96372; 96375; 99285; A9270; C9803; G0378; J0131; J1650; J2405; J3370; J7030; Q9967